=== PATIENT | female | born 1975 | race Caucasian/White ===

== ENCOUNTER 2023-12-06 19:15 | Emergency (ER) | payer BC, OTHER ==
[2023-12-06 19:35] VITALS: TEMP 98.7
--- NOTE | 2023-12-06 20:18 | ERPHSYRPT ---
- History of Present Illness Time Seen by Provider: 12/06/23 19:47 Source: patient Exam Limitations: no limitations Patient Subjective Stated Complaint: BLE swelling Triage Nursing Assessment: pt ambulated into the er; pt is axo x4; c/o BLE edema; pt states 10/10 pain to BLE; 2+ pitting edema to BLE; pt states SOB; denise lower lobe coarse lung sounds; strong denise pedal pulses; strong denise radial pulses; clear apical heart tone; tachycardic; hypertensive; skin PDW Physician History: 48 years old female with history of tobacco abuse, COPD, questionable history of congestive heart failure presented in the ER with increasing bilateral lower extremity swelling for almost 1 month where patient feels tightness and pain wit h swelling and multiple pounds weight gain lately. Patient reports having similar symptoms few months ago and was seen at [facility] ER, was given Lasix for few days and it improved. Patient has shortness of breath at her baseline which is also getting a little worse than usual with exertion. Patient thinks she is retaining fluid. Denies any chest pain or palpitations. No fever or chills reported. Allergies/Adverse Reactions: acetaminophen [From Vicodin] Allergy (Verified 12/06/23 19:22) Hives codeine Allergy (Verified 12/06/23 19:22) Hives hydrocodone [From Vicodin] Allergy (Verified 12/06/23 19:22) Hives strawberry Allergy (Verified 12/06/23 19:22) Hives Hx Tetanus, Diphtheria Vaccination/Date Given: No Hx Influenza Vaccination/Date Given: No Hx Pneumococcal Vaccination/Date Given: No Travel Risk - International Travel Have you traveled outside of the country in past 3 weeks: No - Emerging Infectious Disease Are you exhibiting symptoms associated with any current EIDs: Yes Symptoms: Shortness of Breath - Review of Systems Constitutional: No Symptoms Eyes: No Symptoms Ears, Nose, & Throat: No Symptoms Respiratory: Cough, Dyspnea, Dyspnea on Exertion (NEFF) Cardiac: Edema Abdominal/Gastrointestinal: No Symptoms Genitourinary Symptoms: No Symptoms Musculoskeletal: No Symptoms Skin: No Symptoms Neurological: No Symptoms Psychological: No Symptoms Endocrine: No Symptoms Hematologic/Lymphatic: No Symptoms Immunological/Allergic: No Symptoms - Past Medical History Pertinent Past Medical History: Yes Respiratory History: Asthma Female Reproductive Disorders: Endometriosis - Past Surgical History Past Surgical History: Yes Gastrointestinal: Cholecystectomy Female Surgical History: Section, Other Other Surgical History: x3 - Female History Hx Now: (unkn) - Social History Smoking Status: Current every day smoker How long have you smoked: 35 Exposure to second hand smoke: Yes Drug Use: marijuana - Social Determinants of Health Will the patient participate in the screening: Yes Do you worry about a steady place to live?: No Do you have any problems with any of the following?: No known problems In the past 12 months,have you had to go without utilities?: No Transportation Issues: No Has anyone in your support network made you feel unsafe?: No Have you or anyone in your house had to go without enough: No - Nursing Vital Signs Nursing Vital Signs: Initial Vital Signs Temperature 98.7 F 12/06/23 19:23 Pulse Rate 112 H 12/06/23 19:23 Respiratory Rate 24 12/06/23 19:23 Blood Pressure 141/102 12/06/23 19:23 O2 Sat by Pulse Oximetry 99 12/06/23 19:23 Pain Scale Pain Intensity 4 - Physical Exam General Appearance: no apparent distress, alert Eye Exam: PERRL/EOMI Ears, Nose, Throat Exam: hearing grossly normal, normal ENT inspection, normal pharynx Neck Exam: normal inspection, non-tender, supple, full range of motion Respiratory Exam: rhonchi, No respiratory distress Cardiovascular/Chest Exam: normal heart sounds, tachycardia Abdominal/Gastrointestinal Exam: soft, normal bowel sounds, No tenderness Extremity Exam: non-tender, normal range of motion Neurologic Exam: alert, oriented x 3, cooperative Skin Exam: normal color SpO2 Interpretation: normal SpO2: 99 O2 Delivery: Room Air - Course EKG Interpreted by Me: RATE ([id number]), Sinus Tach, NORMAL AXIS, NORMAL INTERVALS, NORMAL QRS Ordered Tests: Active Orders 24 hr Category Date Time Status Corporate Intern STAT Care 12/06/23 19:48 Active EKG-ER Only STAT Care 12/06/23 19:48 Active IV Insertion STAT Care 12/06/23 19:48 Active CHEST 1 VIEW (PORTABLE) Stat Exams 12/06/23 20:05 Taken CHEST WITH CONTRAST [CT] Stat Exams 12/06/23 22:58 Completed CBC W DIFF Stat Lab 12/06/23 20:25 Completed CMP Stat Lab 12/06/23 20:25 Completed D-DIMER QUANTITATIVE Stat Lab 12/06/23 21:55 Completed Lactic Acid Stat Lab 12/06/23 20:29 Completed MAGNESIUM Stat Lab 12/06/23 20:25 Completed NT PRO BNPII Stat Lab 12/06/23 20:25 Completed TROPONIN Q4H Lab 12/06/23 20:25 Completed Medication Summary Discontinued Medications Generic Name Dose Route Start Last Admin Trade Name Radha PRN Reason Stop Dose Admin Furosemide 40 mg 12/06/23 19:48 12/06/23 20:47 Furosemide 40 Mg/4 Ml Vial IV 12/06/23 19:49 40 mg STAT ONE Administration Furosemide Confirm 12/06/23 20:46 Furosemide 40 Mg/4 Ml Vial Administered 12/06/23 20:47 Dose 40 mg .ROUTE .[facility] ONE Lab/Rad Data: Laboratory Result Diagrams 12/06/23 20:25 12/06/23 20:25 Laboratory Results 12/06/23 12/06/23 12/06/23 Range/Units 21:55 20:29 20:25 WBC (3.98-10.04) x10^3/uL RBC (3.93-5.22) x10^6/uL Hgb (11.2-15.7) g/dL Hct (34.1-44.9) % MCV (79.4-94.8) fL MCH (25.6-32.2) pg MCHC (32.2-35.5) g/dL RDW (11.7-14.4) % Plt Count (182-369) x10^3/uL MPV (9.4-12.3) fL Gran % (34.0-71.1) % Immature Gran % (Auto) (0.001-0.429) % Nucleat RBC Rel Count (0.00-0.2) % Eos # (Auto) (0.04-0.36) x10^3/uL Immature Gran # (Auto) (0.001-0.031) x10^3u/L Absolute Lymphs (auto) (1.18-3.74) x10^3/uL Absolute Monos (auto) (0.24-0.86) x10^3/uL Absolute Nucleated RBC (0.00-0.012) x10^3u/L Lymphocytes % (19.3-51.7) % Monocytes % (4.7-12.5) % Eosinophils % (0.7-5.8) % Basophils % (0.1-1.2) % Absolute Granulocytes (1.56-6.13) x10^3/uL Basophils # (0.01-0.08) x10^3/uL D-Dimer 1.64 H* (0.0-0.50) mg/L Sodium (135-145) mmol/L Potassium (3.5-5.1) mmol/L Chloride (98-107) mmol/L Carbon Dioxide (22-30) mmol/L Anion Gap (5-15) MEQ/L BUN (7-17) mg/dL Creatinine (0.52-1.04) mg/dL Estimated GFR ML/MIN Glucose (74-106) mg/dL Lactic Acid 1.0 (0.4-2.0) Calcium (8.4-10.2) mg/dL Magnesium (1.6-2.3) mg/dL Total Bilirubin (0.2-1.3) mg/dL AST (14-36) U/L ALT (0-35) U/L Alkaline Phosphatase (38-126) U/L Troponin I < 0.012 (0.000-0.033) ng/mL NT-Pro-B Natriuret Pep 162 (<300) pg/mL Serum Total Protein (6.3-8.2) g/dL Albumin (3.5-5.0) g/dL 12/06/23 12/06/23 Range/Units 20:25 20:25 WBC 6.8 (3.98-10.04) x10^3/uL RBC 4.51 (3.93-5.22) x10^6/uL Hgb 11.7 (11.2-15.7) g/dL Hct 37.3 (34.1-44.9) % MCV 82.7 (79.4-94.8) fL MCH 25.9 (25.6-32.2) pg MCHC 31.4 L (32.2-35.5) g/dL RDW 14.4 (11.7-14.4) % Plt Count 345 (182-369) x10^3/uL MPV 9.7 (9.4-12.3) fL Gran % 69.3 (34.0-71.1) % Immature Gran % (Auto) 0.3 (0.001-0.429) % Nucleat RBC Rel Count 0.0 (0.00-0.2) % Eos # (Auto) 0.04 (0.04-0.36) x10^3/uL Immature Gran # (Auto) 0.02 (0.001-0.031) x10^3u/L Absolute Lymphs (auto) 1.43 (1.18-3.74) x10^3/uL Absolute Monos (auto) 0.57 (0.24-0.86) x10^3/uL Absolute Nucleated RBC 0.00 (0.00-0.012) x10^3u/L Lymphocytes % 21.0 (19.3-51.7) % Monocytes % 8.4 (4.7-12.5) % Eosinophils % 0.6 L (0.7-5.8) % Basophils % 0.4 (0.1-1.2) % Absolute Granulocytes 4.72 (1.56-6.13) x10^3/uL Basophils # 0.03 (0.01-0.08) x10^3/uL D-Dimer (0.0-0.50) mg/L Sodium 137 (135-145) mmol/L Potassium 3.7 (3.5-5.1) mmol/L Chloride 106 (98-107) mmol/L Carbon Dioxide 21 L (22-30) mmol/L Anion Gap 13.8 (5-15) MEQ/L BUN 12 (7-17) mg/dL Creatinine 0.76 (0.52-1.04) mg/dL Estimated GFR 97.8 ML/MIN Glucose 119 H (74-106) mg/dL Lactic Acid (0.4-2.0) Calcium 9.1 (8.4-10.2) mg/dL Magnesium 2.3 (1.6-2.3) mg/dL Total Bilirubin 0.50 (0.2-1.3) mg/dL AST 17 (14-36) U/L ALT 13 (0-35) U/L Alkaline Phosphatase 99 (38-126) U/L Troponin I (0.000-0.033) ng/mL NT-Pro-B Natriuret Pep (<300) pg/mL Serum Total Protein 7.3 (6.3-8.2) g/dL Albumin 4.0 (3.5-5.0) g/dL - Progress Progress: improved Air Movement: fair Progress Note: 12/07/23 00:48 48 years old with a history of smoking/COPD, questionable CHF is evaluated for bilateral lower extremity swelling with some increased dyspnea on exertion which she does have at her baseline. Patient is not in any distress, room air oxygen saturation around 99%. Patient does have swelling of feet and legs 2+ pitting edema. She is given IV Lasix and has good urine output, feeling mild relief. Patient workup showed normal white count, unremarkable chemistries and negative troponins. Chest x-ray showed some congestion especially on the right side reviewed by me, official report is pending. EKG is sinus tach with no ST elevation. I have obtained D-dimer which is elevated and have obtained CTA chest which unfortunately due to contrast phase is not a good study for PE rule out. I have offered/recommended patient to have her chest scan again but she does not want to have it done at all. Before the CT result was back, patient was adamant about going home as she has to go to work in the morning. Patient reports she had a similar symptoms couple months ago and was given Lasix which helped. She does not want to have second troponin either. I have offered her observation admission after inconclusive study and she is absolutely and no favor of staying in the hospital. Patient reports she would follow-up outpatient with her primary care. Since patient is not in any distress and she is willing to have outpatient follow-up, recommended to have outpatient CTA done or ultrasound done for further evaluation. Also give her a short course of Lasix and recommended compression stocking, decrease salt intake and outpatient cardiology follow-up. Discussed signs symptoms of worsening needing return to ER immediately which she understands and agrees with. Blood Culture(s) Obtained: No Antibiotics given: No Counseled pt/family regarding: lab results, diagnosis, need for follow-up, rad results Medical Desision Making - Diagnostic Testing Diagnostic test were ordered, analyzed, and reviewed by me: Yes Radiological Interpretation: Interpreted by me, Reviewed by me, Teleradiologist Report - Risk of complications The pt has a mod risk of morbidity or mortality based on: Need for prescription drug management - Departure Departure Disposition: Home Clinical Impression: Edema of both lower extremities, Dyspnea Condition: Stable Critical Care Time: No Referrals: CHITO ULLOA [Primary Care Provider] - Follow up with PCP 1 day BLANCA BANERJEE [CONSULTING PHYSICIAN] - Follow up other (Call for appointment for reevaluation) Instructions: Dependent Edema (DC) Additional Instructions: Do not smoke, use inhaler as recommended. Use compression stocking and keep your feet elevated. Take low-salt diet. Return to ER for increasing swelling in extremities, difficulty breathing or chest pain. Follow-up with your primary care for reevaluation and may need bilateral lower extremity ultrasound to rule out any blood clot. Prescriptions: Furosemide 20 mg [Lasix 20 mg] 20 mg PO BID #10 tablet
[2023-12-06 20:36] LABS: Absolute Neutrophil Ct (ANC) 4.72 x10^3/uL (1.56-6.13); BASOPHIL % 0.4 % (0.1-1.2); Basophil (Absolute #) 0.03 x10^3/uL (0.01-0.08); Eosinophil % 0.6 % (0.7-5.8); Eosinophil (Absolute #) 0.04 x10^3/uL (0.04-0.36); Hematocrit 37.3 % (34.1-44.9); Hemoglobin 11.7 g/dL (11.2-15.7); IMMATURE GRAN # 0.02 x10^3u/L (0.001-0.031); IMMATURE GRAN % 0.3 % (0.001-0.429); Lymphocyte (Absolute #) 1.43 x10^3/uL (1.18-3.74); Mean Cell Volume 82.7 fL (79.4-94.8); Mean Corpuscular Hemoglobin 25.9 pg (25.6-32.2); Mean Corpuscular Hgb Concent. 31.4 g/dL (32.2-35.5); Mean Platelet Volume 9.7 fL (9.4-12.3); Monocyte (Absolute #) 0.57 x10^3/uL (0.24-0.86); Monocytes % 8.4 % (4.7-12.5); Neutrophil % 69.3 % (34.0-71.1); Platelet Count 345 x10^3/uL (182-369); Red Blood Count 4.51 x10^6/uL (3.93-5.22); Red Cell Distribution Width 14.4 % (11.7-14.4); White Blood Count 6.8 x10^3/uL (3.98-10.04)
[2023-12-06] MEDS ORDERED: Lasix 40 MG/4 ML ONE (20:46)
[2023-12-06] MEDS: Lasix 40 MG/4 ML IV ONE (20:47)
[2023-12-06 20:53] LABS: ANION GAP 13.8 MEQ/L (5-15); BILIRUBIN,TOTAL 0.5 mg/dL (0.2-1.3); Calcium 9.1 mg/dL (8.4-10.2); Creatinine 1 0.76 mg/dL (0.52-1.04); EST GLOMERULAR FILTRATION RATE 97.8 ML/MIN; MAGNESIUM 2.3 mg/dL (1.6-2.3); Potassium 3.7 mmol/L (3.5-5.1); Total Protein 7.3 g/dL (6.3-8.2)
[2023-12-06 20:54] VITALS: RESP 18
[2023-12-06 21:11] LABS: NT PRO BNPII 162 pg/mL (<300); TROPONIN < 0.012 ng/mL (0.000-0.033)
[2023-12-07 00:22] VITALS: BP 113/83; PULSE 91
--- NOTE | 2023-12-07 00:43 | XRAY ---
CLINICAL HISTORY: PE protocol, sob, swelling COMPARISON: None TECHNIQUE: CT chest with contrast, PE protocol was performed using contrast with sagittal and coronal reformats. One of the following dose reduction techniques were utilized for this exam: Automated exposure control, adjustment of the mA and/or kV according to patient size, use of iterative reconstruction. FINDINGS: The contrast phase is not appropriate for evaluation of pulmonary arterial 2vasculature due to delayed phase acquisition, hence pulmonary thromboembolism cannot be commented upon. Contrast timing is at the thoracic aorta phase. The contrast is predominantly seen in pulmonary veins which appear unremarkable. The main pulmonary trunk, right and left pulmonary arteries appear normal in caliber. The aortic arch and visualized ascending aorta and descending aorta are normal. Bilateral lung nunez are normal in translucency and markings, except for dependant confluencing ground glass haziness in bilateral lung bases. Few millimetric calcified mediastinal and right hilar nodes noted. No evidence of pleural/pericardial effusion. Heart size is normal. The thoracic spine shows mild degenerative changes. Age indeterminate fracture of left seventh rib in posterior aspect. Scanned upper abdomen shows small non-enhancing lesions in visualized liver, likely benign hepatic cyst. Tiny old calcified granulomas seen in spleen. Post cholecystectomy status. IMPRESSION: Inappropriate contrast phase for evaluation of pulmonary arterial vasculature due to delayed phase acquisition, hence pulmonary thromboembolism cannot be commented upon. Consider repeat examination if clinically warranted Electronically Signed by: Katherine Schmidt MD. (12/07/2023 00:40:19 EDT)
[2023-12-07 00:51] VITALS: O2SAT 99
--- NOTE | 2023-12-07 09:11 | XRAY ---
Indication: Short of breath. CHF. Comparison: September 15, 2007 Portable chest again demonstrates normal heart and lungs. Bony thorax intact with new finding for old left 6/7 rib fractures.
== END 2023-12-07 00:55 | disposition home or self-care (01) ==
LOC: ED 19:15
DX: R60.0 Localized edema (principal); R06.00 Dyspnea, unspecified; Z72.0 Tobacco use
CPT/HCPCS: 36000; 36415; 71045; 71260; 80053; 83605; 83735; 83880; 84484; 85025; 85379; 93005; 93041; 96374; 99284; J1940